=== PATIENT | male | born 1955 | race Caucasian/White ===

== ENCOUNTER → 2020-11-24 | Outpatient (CLI) | payer MEDICARE, OTHER ==
[~2020-11-24] MED LIST: ACET-1600 PO; ASCO500T8 PO; ATOR10TA9 PO; CARB1TAB44 PO; DIAZ5TAB PO; FAMO-79 PO; GABA300C10 PO; METH4TAB2 PO; METH750T87 PO; MULT-658 PO; MULT1CAP19 PO; NEUPRO HOMETP; OXYC-380 PO; OXYC1TAB14 PO; OXYC1TAB7 PO; RASA1TAB2 PO; ROPI1TAB4 PO; ROPI6TAB2 PO; SENN-52 PO; TRIH2TAB3 PO; VIT1CAPS16 PO; VIT1CAPS42 PO; [UNRECOGNIZED DRUG - OTHER] PO; [UNRECOGNIZED DRUG - OTHER] PO; diclofen PO; gabapentin PO; multivitamin
[2020-11-24 11:32] LABS: BASOPHILS % (AUTO) 1 % (0-1); EOSINOPHILS % (AUTO) 3 % (1-7); LYMPHOCYTES % (AUTO) 29 % (22-44); MD NO; MEAN CORPUSCULAR HEMOGLOBIN 30.4 pg (27.5-34.5); MEAN CORPUSCULAR HGB CONC 33.5 g/dL (33.2-36.2); MEAN PLATELET VOLUME 9.4 fL (7.4-10.4); MONOCYTES % (AUTO) 9 % (2-9); NEUTROPHILS % (AUTO) 59 % (42-75); PLATELET COUNT 202 x10^3/uL (130-400); RED BLOOD COUNT 4.88 x10^6/uL (4.38-5.82); RED CELL DISTRIBUTION WIDTH 13.5 % (9.4-14.8)
[2020-11-24 11:43] LABS: INTERNATIONAL NORMALIZED RATIO 1.02 (0.93-1.1); PROTHROMBIN TIME 10.9 Seconds (9.6-11.5)
[2020-11-24 12:30] LABS: CHLORIDE 103 mmol/L (98-107)
[2020-11-24 12:41] LABS: ANION GAP 5 mmol/L (5-15); CALCIUM 8.7 mg/dL (8.5-10.1); CREATININE 0.72 mg/dL (0.7-1.3)
== END | disposition home or self-care (01) ==
LOC: STAR 10:15
PROVIDERS: ATTEND Neurological Surgery
DX: Z01.812 Encounter for preprocedural laboratory examination (principal); Z20.822 Contact with and (suspected) exposure to COVID-19; M48.04 Spinal stenosis, thoracic region; I25.2 Old myocardial infarction
CPT/HCPCS: 36415; 71046; 80048; 85025; 85610; 85730; 93005; U0003

== ENCOUNTER 2020-11-30 08:18 | Inpatient (IN) | payer MEDICARE, OTHER ==
[~2020-11-30] VITALS: Ht 170.2 cm; Wt 101.0 kg
[2020-11-30] MEDS ORDERED: BACITRACIN 50,000 UNIT ONE (08:33)
[2020-11-30] MEDS ORDERED: BUPIVACAINE/PF 0.5% ONE (08:33)
[2020-11-30] MEDS ORDERED: METHYLENE BLUE 50 MG/10 ML AMP ONE (08:33)
[2020-11-30] MEDS ORDERED: EPINEPHRINE 1 MG/ML, 1ML ONE (08:33)
[2020-11-30] MEDS ORDERED: LACTATED RINGERS 1,000 ML IV SCH (09:00)
[2020-11-30] MEDS ORDERED: CHLORHEXIDINE 15 ML UDC PO ONE (09:00)
[2020-11-30] MEDS ORDERED: FENTANYL PF 250 MCG/5ML ONE (11:07)
[2020-11-30] MEDS ORDERED: MIDAZOLAM 1 MG/ML, 2ML ONE (11:07)
[2020-11-30] MEDS ORDERED: CEFAZOLIN 1,000 MG ONE ×2 (11:09)
[2020-11-30] MEDS ORDERED: DEXAMETHASONE 4 MG/ML, 1ML ONE ×2 (11:09)
[2020-11-30] MEDS ORDERED: LIDOCAINE-MPF 2% ,5ML ONE (11:09)
[2020-11-30] MEDS ORDERED: PROPOFOL 10 MG/ML, 20ML ONE (11:09)
[2020-11-30] MEDS ORDERED: ONDANSETRON 2MG/ML, 2ML ONE (11:09)
[2020-11-30] MEDS ORDERED: ROCURONIUM 10MG/ML,5ML ONE (11:09)
[2020-11-30] MEDS ORDERED: PROPOFOL 50 ML ONE ×3 (11:13→14:18)
[2020-11-30] MEDS ORDERED: VANCOMYCIN 500 MG ONE (11:45)
[2020-11-30] MEDS ORDERED: SUCCINYLCHOLINE 20 MG/ML, 10ML ONE (11:55)
[2020-11-30] MEDS ORDERED: hydrALAzine 20 MG/ML, 1ML IV PRN (13:00)
[2020-11-30] MEDS ORDERED: METHOCARBAMOL 1,000 MG in DEXTROSE 5% 100 ML IV PRN (13:00)
[2020-11-30] MEDS ORDERED: DIPHENHYDRAMINE 50 MG/ML, 1ML IVPush PRN ×2 (13:00→17:00)
[2020-11-30] MEDS ORDERED: ONDANSETRON 2MG/ML, 2ML IVPush PRN (13:00)
[2020-11-30] MEDS ORDERED: LABETALOL 5MG/ML, 20ML IV PRN ×2 (13:00→17:00)
[2020-11-30] MEDS ORDERED: HYDROmorphone 1 MG/ML, 1ML INJ IVPush PRN (13:00)
[2020-11-30] MEDS ORDERED: ACETAMINOPHEN 325 MG TABLET PO PRN (13:00)
[2020-11-30] MEDS ORDERED: DIAZEPAM 5 MG/ML, 2ML IVPush PRN (13:00)
[2020-11-30] MEDS ORDERED: OXYcodone 5 MG/5 ML ORAL.SOL UDC PO PRN (13:00)
[2020-11-30] MEDS ORDERED: FENTANYL PF 100 MCG/2ML ONE ×2 (14:56→15:24)
[2020-11-30] MEDS: FENTANYL PF 100 MCG/2ML IV PRN ×3 (14:58→15:25)
[2020-11-30] MEDS ORDERED: CARBIDOPA/LEVODOPA CR 50 MG/200 MG TABLET PO ONE (15:30)
[2020-11-30] MEDS ORDERED: OXYcodone 5 MG/5 ML ORAL.SOL UDC ONE (15:39)
[2020-11-30] MEDS ORDERED: HYDROmorphone 2 MG/ML, 1ML IM PRN (17:00)
[2020-11-30] MEDS ORDERED: DIPHENHYDRAMINE 25 MG CAPSULE PO PRN (17:00)
[2020-11-30] MEDS ORDERED: PROMETHAZINE 25 MG/ML, 1ML IM PRN (17:00)
[2020-11-30] MEDS ORDERED: ONDANSETRON 2MG/ML, 2ML IV PRN (17:00)
[2020-11-30] MEDS ORDERED: METHOCARBAMOL 750 MG TABLET PO PRN (17:00)
[2020-11-30] MEDS ORDERED: MAGNESIUM HYDROXIDE 8%, 30ML UDC PO PRN (17:00)
[2020-11-30] MEDS ORDERED: DIPHENHYDRAMINE 50 MG/ML, 1ML IM PRN (17:00)
[2020-11-30] MEDS ORDERED: BISACODYL 10 MG SUPP PR PRN (17:00)
[2020-11-30] MEDS: NS + 20MEQ KCL 1,000 ML IV SCH (18:10)
[2020-11-30 19:44] VITALS: BP 135/75
[2020-11-30] MEDS: CARBIDOPA/LEVODOPA CR 50 MG/200 MG TABLET PO SCH (20:36)
[2020-11-30] MEDS: CEFAZOLIN PMX 1GM/50ML 50 ML IVPB SCH (20:37)
[2020-12-01 00:38] VITALS: BP 112/75
[2020-12-01 01:02] VITALS: BP 114/78
[2020-12-01] MEDS ORDERED: DIAZEPAM 5 MG TABLET PO PRN (03:00)
[2020-12-01] MEDS ORDERED: PHARMACY MAY ADJ FOR RENAL FX MC PRN (03:00)
[2020-12-01] MEDS ORDERED: CYCLOBENZAPRINE 10 MG TABLET PO PRN (03:00)
[2020-12-01] MEDS: CEFAZOLIN PMX 1GM/50ML 50 ML IVPB SCH (04:18)
[2020-12-01 04:23] VITALS: BP 135/83
[2020-12-01 05:19] LABS: BASOPHILS % (AUTO) 0 % (0-1); EOSINOPHILS % (AUTO) 0 % (1-7); LYMPHOCYTES % (AUTO) 7 % (22-44); MEAN CORPUSCULAR HEMOGLOBIN 30.9 pg (27.5-34.5); MEAN CORPUSCULAR HGB CONC 33.8 g/dL (33.2-36.2); MONOCYTES % (AUTO) 6 % (2-9); NEUTROPHILS % (AUTO) 87 % (42-75); PLATELET COUNT 199 x10^3/uL (130-400); RED BLOOD COUNT 4.51 x10^6/uL (4.38-5.82); RED CELL DISTRIBUTION WIDTH 13.1 % (9.4-14.8)
[2020-12-01 05:23] LABS: MD NO
[2020-12-01 05:35] LABS: ALBUMIN 3.6 g/dL (3.4-5.0); ANION GAP 6 mmol/L (5-15); CALCIUM 9.1 mg/dL (8.5-10.1); CHLORIDE 104 mmol/L (98-107)
[2020-12-01] MEDS: CARBIDOPA/LEVODOPA CR 50 MG/200 MG TABLET PO SCH ×4 (06:28→21:24)
[2020-12-01 07:50] VITALS: BP 120/75
[2020-12-01] MEDS: SENNA/DOCUSATE TABLET PO SCH (08:03)
[2020-12-01] MEDS: NS + 20MEQ KCL 1,000 ML IV SCH (08:03)
[2020-12-01] MEDS ORDERED: ROPINIROLE 6 MG PO SCH (09:00)
[2020-12-01] MEDS: RASAGILINE 1 MG PO SCH (09:00)
[2020-12-01 12:40] VITALS: BP 133/81
[2020-12-01] MEDS: ROPINIROLE 0.25MG TABLET PO SCH ×2 (16:06→21:24)
[2020-12-01 20:17] VITALS: BP 111/64
[2020-12-01] MEDS: HYDROcodone/APAP 10/325 MG TABLET PO PRN (21:38)
[2020-12-02] MEDS: NS + 20MEQ KCL 1,000 ML IV SCH (02:19)
[2020-12-02 02:26] VITALS: BP 111/62
[2020-12-02 05:04] LABS: BASOPHILS % (AUTO) 1 % (0-1); EOSINOPHILS % (AUTO) 1 % (1-7); LYMPHOCYTES % (AUTO) 22 % (22-44); MD NO; MEAN CORPUSCULAR HEMOGLOBIN 30.3 pg (27.5-34.5); MEAN CORPUSCULAR HGB CONC 33.2 g/dL (33.2-36.2); MEAN PLATELET VOLUME 8.8 fL (7.4-10.4); MONOCYTES % (AUTO) 9 % (2-9); NEUTROPHILS % (AUTO) 67 % (42-75); PLATELET COUNT 168 x10^3/uL (130-400); RED BLOOD COUNT 4.19 x10^6/uL (4.38-5.82); RED CELL DISTRIBUTION WIDTH 13.4 % (9.4-14.8)
[2020-12-02] MEDS: CARBIDOPA/LEVODOPA CR 50 MG/200 MG TABLET PO SCH ×2 (06:10→10:20)
[2020-12-02] MEDS: HYDROcodone/APAP 10/325 MG TABLET PO PRN (06:12)
[2020-12-02] MEDS: SENNA/DOCUSATE TABLET PO SCH (07:39)
[2020-12-02] MEDS: ROPINIROLE 0.25MG TABLET PO SCH (07:39)
[2020-12-02 07:40] VITALS: BP 130/73
[2020-12-02] MEDS: RASAGILINE 1 MG PO SCH (07:51)
== END 2020-12-02 12:15 | disposition home or self-care (01) | DRG 460 ==
LOC: OUT 08:18 → 4NE 16:24 → OUT 17:08 → DCLOUNGE 12-02 12:04
PROVIDERS: ADMIT Neurological Surgery; ATTEND Neurological Surgery
PROC: 00NX0ZZ Release Thoracic Spinal Cord, Open Approach (ICD-10-PCS; 2020-11-30)
PROC: 0MBC0ZZ Excision of Upper Spine Bursa and Ligament, Open Approach (ICD-10-PCS; 2020-11-30)
PROC: 0RG6071 Fusion of Thoracic Vertebral Joint with Autologous Tissue Substitute, Posterior Approach, Posterior Column, Open Approach (ICD-10-PCS; principal; 2020-11-30 12:00)
DX: M48.04 Spinal stenosis, thoracic region (principal); G95.9 Disease of spinal cord, unspecified; M47.14 Other spondylosis with myelopathy, thoracic region
CPT/HCPCS: 36415; 72072; 80048; 82040; 85025; 95938; 95941; C1713; G0378; J0171; J0690; J1100; J2250; J2270; J2405; J2704; J3010; J3370; J3480; Q9968; J0330; J2800; J7120